=== PATIENT | female | born 1965 | race Caucasian/White ===

== ENCOUNTER 2016-07-20 07:46 | Day surgery (SDC) | payer OTHER ==
[2016-07-20 08:39] VITALS: BP 105/72; PULSE 61; RESP 16; TEMP 98; O2SAT 100
[2016-07-20] MEDS ORDERED: LIDOCAINE HCL 1% PF 30 ML VIAL ONE (09:19)
[2016-07-20] MEDS ORDERED: SODIUM BICARBONATE 8.4% INJ 50 ML ONE (09:19)
[2016-07-20 09:20] VITALS: BP 114/67; PULSE 57; RESP 18; TEMP 97.9; O2SAT 98
--- NOTE | 2016-07-20 10:02 | RADRPT ---
EXAM DATE/TIME: 07/20/2016 08:39 [place] COMPARISON: EXTERNAL COMPARISON: CT CONSULTATION, October 31, 2015, 0:00. [facility], CT PELVIS, W & W/O CONTRAST, Jul 14 2016. INDICATIONS : Left groin lymph node. MEDICAL HISTORY : Carcinoma, breast. SURGICAL HISTORY : section. Lumpectomy. Radiation therapy. ENCOUNTER: Initial ACUITY: 1 week PAIN SCORE: 4/10 LOCATION: Left inguinalcanal. ORGAN: Left lymph node SPECIMENS: Five core specimen(s) submitted for pathologic evaluation. DEVICE: 18 gauge Temno needle Post procedure scanning reveals no hematoma or other complication. The possibility does exist that the tissue obtained will be non-diagnostic. If the sample is non-poly gnostic a repeat biopsy or surgical biopsy may need to be performed. TECHNIQUE: 1. Ultrasound guidance for needle biopsy. 2. Needle biopsy. The risks, benefits, and alternatives to ultrasound guided needle biopsy were explained to the patien t in detail including the risk of bleeding and infection. Written and verbal informed consent was ob tained. With the patient on the ultrasound table, images were obtained. There are multiple abnormal appearin g hypoechoic lymph nodes in the left inguinal region with loss of fatty hilum. One of the largest ramesh sures approximately 1.7 x 1.2 x 1.5 cm. Another measures 2.1 x 1.3 x 1.7 cm. Overlying skin was prepp ed and draped in the usual sterile fashion and Lidocaine was utilized as a local anesthetic. A needle was advanced into the largest abnormal lymph node in the left inguinal region and the number of specimens as above obtained and submitted for pathologic evaluation. The patient tolerated the procedure well and left the ultrasound suite in stable condition. CONCLUSION: Uncomplicated ultrasound guided needle biopsy of an abnormal left inguinal lymph node. Trung Berg MD on July 20, 2016 at 9:58 Board Certified Radiologist. This report was verified electronically.
== END 2016-07-20 09:40 | disposition home or self-care (01) ==
LOC: HRAD 07:46 → HRIP 07:47 → HRAD 09:40
PROVIDERS: ATTEND Surgery
DX: R19.09 Other intra-abdominal and pelvic swelling, mass and lump (principal); Z85.3 Personal history of malignant neoplasm of breast
CPT/HCPCS: 38505; 76942; 88305; 88312; 88341; 88342

== ENCOUNTER → 2016-08-20 | Day surgery (SDC) | payer OTHER ==
--- NOTE | 2016-08-13 07:35 | MH ---
cc: NICOLE MADERA M.D. [facility] NUMBER: [id number] DATE OF ADMISSION: 08/20/2016 PRINCIPLE DIAGNOSIS: Recurrent right breast cancer. ATTENDING PHYSICIAN: Nicole Madera MD. HISTORY OF PRESENT ILLNESS: The patient is a 51 year-old female, initially diagnosed with right breast cancer at age 36. She had ductal carcinoma in-situ in 2001, treated with lumpectomy alone. She developed recurrent upper outer right breast cancer in 2008 and underwent lumpectomy, axillary dissection, and adjuvant radiation. She also completed five years of tamoxifen followed by five years of Aromasin. Her surgery at that time was in [place] but she has been followed by Dr. Lyon in Medical oncology. She recently noted a palpable mass near her right axillary scar in March and a diagnostic mammogram demonstrated a density in the upper outer right breast. A breast MRI was recommended and this was preformed on May 25. This demonstrated a 2.2 cm of enhancement in the right axillae with a second area of irregular enhancement in the posterior upper lateral right breast which was 1 cm in size. Ultrasound guided core biopsy of the axillary and right breast lesions was preformed on June 08 and this demonstrated infiltrating lobular carcinoma in the axillary mass. A second area of enhancement underwent MR guided biopsy on June 22 and this demonstrated fibrotic breast tissue and focal lobular hyperplasia. She has seen a surgeon in [place], Dr. Ambriz, who recommended modified radical mastectomy. She saw me for a second opinion and is interested in reconstruction and is scheduled to see Dr. Johnson on August 02, 2016. A PET scan was obtained recently on June 23, 2016 and this demonstrated the right breast and axillary lesions with no evidence of distant metastasis. FAMILY HISTORY: Significant for breast cancer in her mother at age 60 and two sisters had breast cancer at age 45 and 36. The patient had BRCA testing done in 2008 which was negative. Her mother is currently living with metastatic disease. REPRODUCTIVE HISTORY: G2, T2, Menarche age 15. MEDICATIONS: She currently takes no medications. PAST SURGICAL HISTORY: Previous lumpectomies. Axillary dissection. She also had a oophorectomy. PAST MEDICAL HISTORY: Recurrent breast cancer. REVIEW OF SYSTEMS 12 Point review of systems was significant for gastroesophageal reflux disease. PHYSICAL EXAMINATION: VITAL SIGNS: height 5'2". Weight 125 lbs, body mass index 22.9. Blood pressure 112/80, temperature 98.0, heart rate 81, respirations 16. HEAD, EYES, EARS, NOSE, AND THROAT: Pupils equal, round, reactive to light and accommodation with normal ocular range of motion. NECK: The neck was supple with no adenopathy or thyromegaly. CHEST: The chest was clear throughout. CARDIOVASCULAR SYSTEM: Cardiac examination revealed a normal S1, S2, with no murmurs, rubs or gallops. BREAST: Examination reveals fibrocystic changes and asymmetry with the left breast being larger then the right. A 2 x 1.5 cm superior lateral quadrant mass was palpated in the right breast with an enlarged right axillary lymph node near the site of the biopsied mass and her axillary scar. The mass was mobile. ABDOMEN: The abdominal examination was nontender with no hernias. GENITOURINARY: The genitourinary was significant for fullness in the left groin just above the left inguinal ligament. IMPRESSION/PLAN: Miss Walker has recurrent right breast cancer with an invasive lobular component and new left inguinal fullness despite a negative PET scan. A CT scan did confirm left inguinal adenopathy and CT guided biopsy of the lymph node was preformed which demonstrated benign changes and no evidence of metastatic disease. She has opted for a right mastectomy and right axillary dissection and this will be performed in the near future. MD VAMSI Gifford/bautista /4:03 PM /7:34 AM
[~2016-08-20] MED LIST: APREPITANT 40 MG CAP ONE; BUPIVACAINE/EPINEPHRINE 0.5% 50 ML VIAL ONE; BUPIVACAINE/EPINEPHRINE 0.5% PF 10 ML VIAL ONE; KETOROLAC TROMETHAMINE 30 MG/ML (IVP) VIAL ONE; LACTATED RINGER'S 1000 ML INJ 1,000 ML ONE; MEPERIDINE HCL 25 MG/ML VIAL ONE; MIDAZOLAM HCL 2 MG/2 ML VIAL ONE; ONDANSETRON HCL 4 MG/2 ML VIAL IV PUSH ONE; PROPOFOL 200 MG/20 ML AMP IV ONE; ceFAZolin 2 GM PREMIX 50 ML ONE
--- NOTE | 2016-08-20 12:59 | TN ---
cc: NICOLE MADERA DATE OF SURGERY: 08/20/2016 PREOPERATIVE DIAGNOSIS Recurrent right breast cancer. POSTOPERATIVE DIAGNOSIS Recurrent right breast cancer. ATTENDING PHYSICIAN Nicole Madera PROCEDURE PERFORMED Right mastectomy and right axillary lymph node dissection. ANESTHESIA General via LMA device. INDICATION The patient is a 51-year-old who was initially diagnosed with ductal carcinoma in situ in 2001 which was treated with lumpectomy alone. She subsequently developed a ductal recurrence and was treated with lumpectomy, axillary dissection, whole breast radiation and five years of tamoxifen. She has again developed a biopsy-proven recurrence in the breast and the right axilla and now presents for formal mastectomy and debulking of the axilla. FINDINGS At the time of surgery a palpable mass was identified in the 12 o'clock location of the breast and two palpable masses were identified with overlying skin retraction in the right axilla. PROCEDURE After informed consent was obtained and site verification was performed, the patient was brought to the major operating room where she underwent general anesthesia via an LMA device. She was given a single dose of IV Ancef and sequential compression hose were placed. 150 cc of tumescent solution mixed with 30 cc of Marcaine with epinephrine were then infiltrated circumferentially around the breast in the plane between the anterior breast fascia and the subcutaneous fat. Sharp dissection was performed in the same plane superiorly to the clavicle, medially to the parasternal area, laterally to the axilla, and inferiorly to the anterior rectus sheath. The skin overlying the axillary adenopathy was incorporated into the mastectomy incision as was her previous right axillary scar. Electrocautery dissection was then used to dissect the breast tissue off of the pectoralis muscle including the clavipectoral fascia with the specimen. The breast was then amputated in the axilla and oriented with the skin anterior, one short suture superiorly, and one long suture laterally. The specimen was sent for permanent pathologic evaluation. Some of the biopsy-proven olga lidia metastases were removed with the mastectomy specimen and the remaining clavipectoral fascia was then divided using electrocautery. The axillary vein, long thoracic neurovascular bundle, thoracodorsal neurovascular bundle, medial pectoral vessels and the intercostal brachial nerve were all identified and remained intact throughout the dissection. Some small palpable high level I nodes were removed by dissecting the nodes from the surrounding tissue using the Harmonic scalpel. This was sent as a permanent axillary specimen. Good hemostasis was noted and a stab wound was created and a 10-Croatian round channel drain was placed along the chest wall and secured to the skin with a 3-0 nylon suture. The wound was then closed using interrupted 3-0 Vicryl subcutaneous sutures and a 4-0 Monocryl subcuticular suture. Steri-Strips and a sterile dressing were applied. The patient tolerated the procedure well with an estimated blood loss of 150 cc, and she has extubated in the operating room and brought to the recovery room in good condition. All sponge and needle counts were correct at the conclusion of the case. MD VAMSI Gifford/FARA /12:35 PM /12:47 PM
== END | disposition home or self-care (01) ==
LOC: ESDC 08:45
PROVIDERS: ATTEND Surgery
DX: C50.911 Malignant neoplasm of unspecified site of right female breast (principal)
CPT/HCPCS: 00400; 01610; 19303; 38525; 88309; J0690; J1885; J2175; J2250; J2405; J3010; J7120; J8501; 88307